=== PATIENT | female | born 1990 | race Two or more races ===

== ENCOUNTER 2021-12-23 04:02 | Emergency (ER) | payer MEDICAID ==
[~2021-12-23] VITALS: Ht 149.9 cm; Wt 54.0 kg
[2021-12-23 04:08] VITALS: BP 123/81
== END 2021-12-23 05:21 | disposition left against medical advice (07) ==
LOC: ER 04:02
DX: R10.9 Unspecified abdominal pain (principal)
CPT/HCPCS: 99281

== ENCOUNTER 2022-09-20 16:21 | Emergency (ER) | payer MEDICAID, OTHER ==
[~2022-09-20] VITALS: Ht 149.9 cm; Wt 53.0 kg
[2022-09-20] MEDS ORDERED: TETANUS, DIPHTHERIA, PERTUSSIS VAC/PF 0.5ML (>10YR OLD) IM ONE (19:15)
[2022-09-20 20:10] VITALS: BP 114/78
== END 2022-09-20 20:16 | disposition home or self-care (01) ==
LOC: ER 16:21
DX: S01.21XA Laceration without foreign body of nose, initial encounter (principal); W01.198A Fall on same level from slipping, tripping and stumbling with subsequent striking against other object, initial encounter; Y93.89 Activity, other specified; Y92.013 Bedroom of single-family (private) house as the place of occurrence of the external cause
CPT/HCPCS: 90471; 90715; 99283